=== PATIENT | male | born 1995 | race Caucasian/White ===

== ENCOUNTER 2025-01-13 13:56 | Emergency (ER) | payer SELFPAY ==
[~2025-01-13] VITALS: Ht 175.3 cm; Wt 58.9 kg
[2025-01-13 14:10] VITALS: BP 126/79
[2025-01-13 14:30] VITALS: BP 109/70
[2025-01-13] MEDS ORDERED: KETOROLAC TROMETHAMINE 30 MG/ML SDV IM ONE (14:50)
[2025-01-13 15:00] VITALS: BP 116/85
[2025-01-13] MEDS ORDERED: NAPROXEN500 MG PO (15:07)
[2025-01-13 15:14] VITALS: BP 116/85
== END 2025-01-13 15:25 | disposition home or self-care (01) | DRG 605 ==
LOC: ED 13:56
DX: S90.31XA Contusion of right foot, initial encounter (principal); W20.8XXA Other cause of strike by thrown, projected or falling object, initial encounter; Y99.0 Civilian activity done for income or pay